=== PATIENT | female | born 1955 | race Asian ===

== ENCOUNTER 2024-07-29 09:16 | Emergency (ER) | payer MEDICAID ==
[~2024-07-29] VITALS: Ht 162.6 cm; Wt 80.0 kg
[2024-07-29 09:20] VITALS: TEMP 98.2
[2024-07-29] MEDS ORDERED: ATOR20TA PO (09:31)
[2024-07-29] MEDS ORDERED: LOSA-382 PO (09:31)
[2024-07-29] MEDS ORDERED: IRBE150T51 PO (09:31)
[2024-07-29] MEDS: methocarbamoL 500 MG TABLET PO ONE (10:12)
[2024-07-29] MEDS: ACETAMINOPHEN/CODEINE 300-30 MG TABLET PO ONE (10:12)
[2024-07-29] MEDS: KETOROLAC TROMETHAMINE 60 MG/2 ML VIAL IM ONE (10:13)
[2024-07-29 10:45] VITALS: BP 125/78; PULSE 77; RESP 17; O2SAT 100
[2024-07-29] MEDS ORDERED: IBUP-1554 PO (10:59)
[2024-07-29] MEDS ORDERED: METH-659 PO (10:59)
[2024-07-29] MEDS ORDERED: ACET-2080 PO (10:59)
== END 2024-07-29 11:06 | disposition home or self-care (01) ==
LOC: EMS 09:16
DX: S39.012A Strain of muscle, fascia and tendon of lower back, initial encounter (principal); I10 Essential (primary) hypertension; E78.00 Pure hypercholesterolemia, unspecified; K59.00 Constipation, unspecified; Z98.890 Other specified postprocedural states; Z79.899 Other long term (current) drug therapy; X58.XXXA Exposure to other specified factors, initial encounter; Y93.89 Activity, other specified; Y92.89 Other specified places as the place of occurrence of the external cause; Y99.8 Other external cause status
CPT/HCPCS: 99283; 82962; 96372; J1885